=== PATIENT | female | born 1970 | race Caucasian/White ===

== ENCOUNTER 2017-09-10 21:41 | Emergency (ER) | payer OTHER ==
[~2017-09-10] VITALS: Ht 167.6 cm; Wt 61.2 kg
[2017-09-10 21:48] VITALS: Ht 167.6 cm; Wt 61.2 kg
[2017-09-11 01:35] VITALS: BP 111/67
== END 2017-09-11 01:35 | disposition home or self-care (01) ==
LOC: ED 21:41
DX: R10.9 Unspecified abdominal pain (principal); R11.2 Nausea with vomiting, unspecified
CPT/HCPCS: J2405; Q0162